=== PATIENT | male | born 1935 | race Caucasian/White ===

== ENCOUNTER 2017-07-29 09:33 | Day surgery (SDC) | payer OTHER, BC ==
[2017-07-23 09:08] VITALS: BMI 31.1
[2017-07-29] MEDS ORDERED: DEXAMETHASONE SOD PHOSPHATE/PF 10 MG/ML SDV ONE (10:58)
[2017-07-29] MEDS ORDERED: BUPIVACAINE HCL/PF 2.5 MG/ML - 30 ML VIAL IJ ONE ×2 (10:59→11:37)
[2017-07-29] MEDS ORDERED: MIDAZOLAM HCL 2 MG/2 ML SINGLE DOSE VIAL ONE (10:59)
[2017-07-29] MEDS ORDERED: methylPREDNISolone ACET (DEPO) 40 MG/1 ML VIAL ONE (11:36)
[2017-07-29] MEDS ORDERED: THROMBIN (BOVINE) 5,000 UNIT VIAL TP ONE (11:37)
[2017-07-29] MEDS ORDERED: LIDOCAINE 1%/EPI 1:100000 (20 ML MULTI DOSE VIAL) ONE (11:37)
--- NOTE | 2017-07-29 12:19 | HP ---
History & Physical Update - History History: No Change - Physical Physical: No Change - Assessment Assessment: No Change - Plan Plan: No Change
[2017-07-29] MEDS ORDERED: ONDANSETRON 4 MG/2 ML VIAL ONE ×2 (12:26→15:13)
[2017-07-29] MEDS ORDERED: ceFAZolin SODIUM 1 GM VIAL ONE (12:26)
[2017-07-29] MEDS ORDERED: LIDOCAINE 1%/EPI 1:100000 (50 ML MULTI DOSE VIAL) INF ONE (12:30)
[2017-07-29] MEDS ORDERED: PROPOFOL 20 ML ONE (12:54)
[2017-07-29] MEDS ORDERED: ePHEDrine SULFATE 50 MG/1 ML AMPULE ONE (13:06)
--- NOTE | 2017-07-29 14:29 | OP ---
Operative Note - Note: Operative Date: 07/29/17 Pre-Operative Diagnosis: lumbar stenosis Operation: laminectomy of L4-S1 Surgeon: Shamir Galicia Salesperson [employer]: Cora Delgado Anesthesiologist/VACUUM KETTLE COOK: Antonino Lee Anesthesia: Spinal Estimated Blood Loss (mls): 30 Fluid Volume Replaced (mls): 800 Operative Report Dictated: Yes
--- NOTE | 2017-07-29 14:30 | SURG ---
Surgery Income Tax Investigator Note Income Tax Investigator: Cora Delgado PA-C Date of Service: 07/29/17 Diagnosis: lumbar stenosis Procedure: lamienctomy of L4-S1 I was present for the entirety of the operative procedure. For further detail, please refer to operative report. Visit type - Case Type Case Type: Scheduled Admission - Emergency Emergency Visit: No - New patient This patient is new to me today: Yes Date on this admission: 07/29/17
[2017-07-29] MEDS ORDERED: ONDANSETRON 4 MG/2 ML VIAL IVPUSH PRN (14:34)
[2017-07-29] MEDS ORDERED: LACTATED RINGERS SOLUTION 1,000 ML IV SCH (14:45)
[2017-07-29] MEDS ORDERED: ONDANSETRON 4 MG/2 ML VIAL IVPUSH ONE (15:17)
[2017-07-29 15:59] VITALS: TEMP 98
[2017-07-29] MEDS ORDERED: oxyCODONE HCL 5 MG TABLET ONE ×2 (16:03→16:43)
[2017-07-29] MEDS: oxyCODONE HCL 5 MG TABLET PO PRN ×2 (16:05→16:45)
[2017-07-29 17:40] VITALS: BP 138/75; PULSE 74
--- NOTE | 2017-07-29 18:15 | OP ---
DATE OF OPERATION: 07/29/2017 PREOPERATIVE DIAGNOSIS: Spinal stenosis, L4-5, L5-S1. POSTOPERATIVE DIAGNOSIS: Spinal stenosis, L4-5, L5-S1. PROCEDURE PERFORMED: Laminectomy, L4-5, L5-S1. SURGEON: Shamir Galicia M.D. LEGAL STENOGRAPHER: Serene Hussein ESTIMATED BLOOD LOSS: 50 mL INTRAVENOUS FLUIDS: Per anesthesia. ANESTHESIA: Spinal/TLIP. COMPLICATIONS: There were none. DISPOSITION: Patient brought to the PACU in stable condition. INDICATION FOR SURGERY: The patient is an 81-year-old gentleman who has been suffering from pain from his back down his legs. X-rays and MRI were completed, which noted he has spinal stenosis at L4-5, L5-S1. He had gone through an exhaustive course of treatment for this which included medications, physical therapy, as well as injections. Unfortunately, the pain continued to persist in spite of all this. At this point, risks, benefits, and alternatives were discussed and the patient consented to surgery. OPERATIVE NOTE: Patient is brought to the operating room by the anesthesia staff. After appropriate patient identification is performed, spinal anesthesia was given. A TLIP was also given. The patient was able to position himself prone onto the [place] frame to avoid all bony prominences. Two needles were placed into his back to todd off the L4-5 and L5-S1 segments, and x-ray is taken to confirm this is correct. [place] were removed, and 10 mL of lidocaine with epinephrine was injected into his back at this time. His back was prepped and draped in a sterile manner. At this point timeout was completed. An incision was made from the top of L4 down to the bottom of S1. Dissection was carried down to the fascia. Fascia was then split open at this time, and appropriate retractors were then placed in. Then a spinal needle was placed onto the L4 lamina to todd off the L4-5 level. An x-ray was taken to confirm this was correct. The needle was removed, and microscope was brought in. The interspinous ligament at L4-5, L5-S1 was removed. The spinous process of L5 was removed, and complete laminectomy was performed, such that by the end of the procedure the L5-S1 nerve roots appear to be well decompressed bilaterally. All bleeding was well controlled at this time. Steroids were placed over the nerve root, Floseal was placed over that. The fascia was closed with a number 1 Vicryl suture. The subcutaneous tissue was closed with 2-0 Vicryl suture. Skin was closed with 3-0 Monocryl suture. Dermabond was applied. Steri-Strips were applied. Sterile dressing was applied. Patient was placed supine on OR bed, x-rayed in the OR, and brought to the PACU in stable condition. Adela MOSES/[id number]
== END 2017-07-29 17:15 | disposition home or self-care (01) ==
LOC: FASU 09:33
PROVIDERS: ATTEND Orthopaedic Surgery Orthopaedic Surgery of the Spine
PROC: 01NB0ZZ Release Lumbar Nerve, Open Approach (ICD-10-PCS; principal; 2017-07-29 11:35)
DX: M48.061 Spinal stenosis, lumbar region without neurogenic claudication (principal); M48.07 Spinal stenosis, lumbosacral region
CPT/HCPCS: 72100-TC; 94760